=== PATIENT | female | born 1945 | race Caucasian/White ===

== ENCOUNTER → 2017-01-21 | Outpatient (CLI) | payer OTHER, BC ==
[~2017-01-21] MED LIST: GADOBUTROL 10 ML VIAL IVP ONE
== END ==
LOC: FIMAGING 09:08
PROVIDERS: ATTEND Internal Medicine
DX: I63.9 Cerebral infarction, unspecified (principal); R51 Headache
CPT/HCPCS: 70553; A9585

== ENCOUNTER → 2017-01-27 | Outpatient (CLI) | payer OTHER, BC | LOC: BHFA 11:00 | PROVIDERS: ATTEND Internal Medicine Cardiovascular Disease | DX: G45.9 Transient cerebral ischemic attack, unspecified (principal) ==

== ENCOUNTER 2017-02-01 19:52 | Emergency (ER) | payer OTHER, BC ==
[2017-02-01 20:01] VITALS: RESP 16; TEMP 97.7
[2017-02-01] MEDS ORDERED: IOPAMIDOL (ISOVUE 370) 100 ML BTL IV ONE (20:23)
--- NOTE | 2017-02-01 20:28 | EDPHY ---
H & P HPI/ROS: HPI Numbness on lip. 71-year-old female by private vehicle with her . 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 She was sent by her primary care physician, Dr. Good Dangelo. She has a history of a brainstem infarct the diagnosed by MRI 2 weeks ago. Symptoms prior to this diagnosis included intermittent pain in sensation of fullness over her left eye. She has no sequelae from this event. She reports that she has had word-finding difficulty since being on estrogen agonist/antagonist months ago. She reports that she has been off this medication now for a month but still has some chronic issues with word finding difficulty. She comes to the emergency department tonight out of concern for some sudden-onset right lateral lower lip numbness/loss of sensation starting at 7:30 p.m.. She reports that it has improved but is still present to some extent. She denies any other symptoms. She reports having a lisp for many many years when I asked her about this. ROS: Constitutional: No fever, no chills. No weakness. As above Eyes: No discharge. No changes in vision. ENT: No sore throat. No nasal congestion or rhinorrhea. Respiratory: No cough. No shortness of breath. Cardiac: No chest pain, no palpitations. Gastrointestinal: No abdominal pain, no vomiting, no diarrhea. Genitourinary: No hematuria. No dysuria or increased frequency with urination. Musculoskeletal: No back pain. No neck pain. No myalgias or arthralgias. Skin: No rashes. Neurological: No headache. No focal weakness or altered sensation except noted. Past medical history: Cancer breast and thyroid, diskectomy L4-L5, DVT, brainstem infarct which was identified by MRI on January 27 of this year. Social history: Nonsmoker. Here with her . No alcohol. 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 Physical Exam: General Appearance: Alert, no distress. This patient is responding to questions appropriately and in full sentences. This patient appears well- hydrated and well-nourished. Eyes: Pupils equal and round no pallor or injection. No lid edema, erythema or injection. No photophobia. No nystagmus. ENT, Mouth: Mucous membranes are moist. The pharyngeal tissues are unremarkable. No edema or swelling. No asymmetry suggestive of abscess. No erythema or exudates. No tongue lacerations or abrasions. No deviation of her tongue. Respiratory: There are no retractions, lungs are clear to auscultation with good air movement bilaterally. Cardiovascular: Regular rate and rhythm. No murmur. Gastrointestinal: Abdomen is soft and nontender, no masses, bowel sounds normal. No focal tenderness at McBurney's point. No Flores sign. Neurological: Motor sensory function is grossly intact. Cranial nerves are normal. Gait is normal. Skin: Warm and dry, no rashes. Musculoskeletal: Neck is supple and nontender. No pain on flexion of the neck. Extremities are symmetrical. All joints range without pain or impingement. Psychiatric: No agitation. No depression. Database: EKG: EKG time is 9:04 p.m.; EKG shows a narrow complex normal sinus rhythm with a ventricular rate of 83. The NH, QRS, QT intervals are within normal limits. There are no ST-T wave changes indicative of ischemic or injury pattern. No evidence of right heart strain. Interpreted by me. Imaging: CT head without contrast; negative. No acute pathology. CT angiogram of neck; negative. No vascular compromise. CT angiogram of brain; negative. No vascular compromise. Ectatic left vertebral artery but not stenotic. Results of CT imaging discussed with staff radiologist Dr. Jonah Campos. Procedures: Emergency department course: IV placed. She was placed on a monitor. His EKG obtained. I-STAT creatinine 1.2. Within our protocol limitations. She was started on IV normal saline with 500 cc to be given over the next hour. Will be sent for CT of her brain without contrast followed by CT angiograms of the brain and neck. 9:20 p.m., patient re-evaluated. Repeat neurologic Assessment is nonfocal. She still states that she has a mild sensation of of numbness involving the right lateral lower lip. Otherwise she denies any complaints. We are awaiting results of her CT imaging. 9:35 p.m., patient re-evaluated. Denies any significant numbness or altered sensation in her lips. Repeat neurologic Assessment is nonfocal. Results of blood work and EKG as well as CT imaging discussed with her and her . 10:00 p.m., spoke with her primary care physician Dr. Dangelo. We are unable to get a hold of her neurologist. He informs me that the patient had a negative echocardiogram today and a negative Holter monitor evaluation 2 days ago. I do not feel that another MRI at this time would be significantly beneficial. Both Dr. Dangelo and I feel the patient is safe for discharge with follow-up with her neurologist tomorrow. 10:10 p.m., patient re-evaluated. Repeat neurologic Assessment is nonfocal. I discussed disposition with her and her in a shared decision making fashion. She feels comfortable going home and I feel she is safe for discharge at this time. She lives here in town and can easily return to the emergency department if she has any concerns. She will follow up with her neurologist tomorrow for re-evaluation. All of her questions were answered. She was discharged in good condition with her . Differential Diagnosis: The differential diagnosis on this patient includes but is not limited to CVA, TIA. This represents a partial list of diagnoses considered. These considerations are based on history, physical exam, past history, reassessment and diagnostic testing. Smoking Status: Never smoked Constitutional: Initial Vital Signs Temperature (C) 36.5 C 02/01/17 19:58 Heart Rate 83 02/01/17 19:58 Respiratory Rate 16 02/01/17 19:58 Blood Pressure 120/94 H 02/01/17 19:58 O2 Sat (%) 98 02/01/17 19:58 O2 Delivery Mode Room Air Allergies/Adverse Reactions: methyldopa [From Aldomet] Allergy (Verified 05/07/11 17:32) methyldopate HCl [From Aldomet] Allergy (Verified 05/07/11 17:32) Penicillins Allergy (Verified 05/07/11 17:32) Home Medications: Medication Instructions Recorded Acetamn/Diphenhydramine 500/25 1 each PO HS 07/05/12 [Tylenol PM (RX)] ESOMEPRAZOLE MAG TRIHYDRATE 20 mg PO 1900 07/05/12 [NEXIUM] Folic Acid [Folic Acid 1 MG (RX)] 1 mg PO 1900 07/05/12 Methotrexate Sodium [Methotrexate] 15 mg PO MO 07/05/12 Not Completed By Platinum Smith 07/05/12 07/05/12 Medical Decision Making - Diagnostics Imaging Results: Imaging Impressions Head CT 02/01/17 20:09 Impression: 1. Elderly brain, with atrophy and probable white matter small vessel disease. 2. No definite acute cortical ischemia. 3. The recently documented focal area of acute ischemia in the brainstem is not visualized on this CT study. CT angiography of the neck and head are pending. Results called and discussed with Mara Bryant MD on 02/01/2017 at 21: 29 Head CTA 02/01/17 20:09 Impression: 1. CT angiography of the neck is negative for arterial occlusive disease. 2. There is a dominant left vertebral which is dolichoectatic at the distal aspect as well as at the skull base and there is minimal calcified plaque associated with the dilated vessel. CT Angiography of the Head With Attention to the [place] Reason for examination: Dizziness; evaluate for arterial occlusive disease. Follow-up recent brainstem infarct documented on MRI of the brain January 21, 2017. Technique: A spiral acquisition was performed from the base of the brain to the vertex during rapid intravenous administration of 100 mL of Isovue-370. This contrast volume was utilized for evaluation of the neck and head. Axial images are obtained at 0.6 mm thickness and the examination is reviewed on the workstation in multiple window and level settings. Sagittal and coronal reformats are performed and three-dimensional reformations are performed by the radiologist on the workstation. Dose reduction techniques were utilized. Findings: There is excellent arterial opacification. The anterior circulation is normal. The distal internal carotid arteries as well as anterior middle cerebrals are normal. As detailed above there is a dominant left vertebral which is dolichoectatic at the skull base and gives rise to the basilar artery. The [place] appears intact. No areas of diminished perfusion are seen. Specifically no vascular abnormality is seen corresponding to the punctate area of acute ischemia identified in the left side of the brainstem on the MRI.. No regions of stenosis are identified. No hemorrhages are seen and no vascular malformations are identified. No areas of abnormal perfusion are identified and there are no findings to suggest cortical ischemia. Impression: 1. 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 This vessel contains some calcification without occlusion or dissection. 2. Anterior circulation appears normal. Note: All stenoses are calculated using NASCET Criteria. Results called and discussed with Mara Bryant MD on 02/01/2017 at 21: 23 Neck CTA 02/01/17 20:09 Impression: 1. CT angiography of the neck is negative for arterial occlusive disease. 2. There is a dominant left vertebral which is dolichoectatic at the distal aspect as well as at the skull base and there is minimal calcified plaque associated with the dilated vessel. CT Angiography of the Head With Attention to the [place] Reason for examination: Dizziness; evaluate for arterial occlusive disease. Follow-up recent brainstem infarct documented on MRI of the brain January 21, 2017. Technique: A spiral acquisition was performed from the base of the brain to the vertex during rapid intravenous administration of 100 mL of Isovue-370. This contrast volume was utilized for evaluation of the neck and head. Axial images are obtained at 0.6 mm thickness and the examination is reviewed on the workstation in multiple window and level settings. Sagittal and coronal reformats are performed and three-dimensional reformations are performed by the radiologist on the workstation. Dose reduction techniques were utilized. Findings: There is excellent arterial opacification. The anterior circulation is normal. The distal internal carotid arteries as well as anterior middle cerebrals are normal. As detailed above there is a dominant left vertebral which is dolichoectatic at the skull base and gives rise to the basilar artery. The [place] appears intact. No areas of diminished perfusion are seen. Specifically no vascular abnormality is seen corresponding to the punctate area of acute ischemia identified in the left side of the brainstem on the MRI.. No regions of stenosis are identified. No hemorrhages are seen and no vascular malformations are identified. No areas of abnormal perfusion are identified and there are no findings to suggest cortical ischemia. Impression: 1. 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 This vessel contains some calcification without occlusion or dissection. 2. Anterior circulation appears normal. Note: All stenoses are calculated using NASCET Criteria. Results called and discussed with Mara Bryant MD on 02/01/2017 at 21: 23 - Data Points Laboratory Results: Laboratory Results 02/01/17 20:10 02/01/17 20:10 02/01/17 02/01/17 02/01/17 20:11 20:10 20:10 WBC RBC Hgb POC Hgb 13.6 gm/dL gm/dL (12.6-16.3) Hct POC Hct 40 % % (38-47) MCV MCH MCHC RDW Plt Count MPV Neut % (Auto) Lymph % (Auto) [place] % (Auto) Eos % (Auto) Baso % (Auto) Nucleat RBC Rel Count Absolute Neuts (auto) Absolute Lymphs (auto) Absolute Monos (auto) Absolute Eos (auto) Absolute Basos (auto) Absolute Nucleated RBC Immature Gran % Immature Gran # PT 12.3 SEC SEC (12.0-15.0) INR 0.92 (0.83-1.16) APTT 28.0 SEC SEC (23.0-38.0) POC Sodium 141 mEq/L mEq/L (134-144) Sodium 140 mEq/L mEq/L (134-144) POC Potassium 4.6 mEq/L mEq/L (3.3-5.0) Potassium 4.8 mEq/L mEq/L (3.5-5.2) POC Chloride 101 mEq/L mEq/L (97-110) Chloride 101 mEq/L mEq/L (97-110) Carbon Dioxide 26 mEq/l mEq/l (22-31) Anion Gap 13 mEq/L mEq/L (8-16) POC BUN 25 mg/dL H mg/dL (7-23) BUN 25 mg/dL H mg/dL (7-23) Creatinine 1.1 mg/dL H mg/dL (0.6-1.0) POC Creatinine 1.2 mg/dL H mg/dL (0.6-1.0) Estimated GFR 49 Glucose 87 mg/dL mg/dL (70-100) POC Glucose 89 mg/dL mg/dL (70-100) Calcium 9.9 mg/dL mg/dL (8.5-10.4) 02/01/17 20:10 WBC 5.91 10^3/uL 10^3/uL (3.80-9.50) RBC 4.55 10^6/uL 10^6/uL (4.18-5.33) Hgb 13.3 g/dL g/dL (12.6-16.3) POC Hgb Hct 39.7 % % (38.0-47.0) POC Hct MCV 87.3 fL fL (81.5-99.8) MCH 29.2 pg pg (27.9-34.1) MCHC 33.5 g/dL g/dL (32.4-36.7) RDW 12.5 % % (11.5-15.2) Plt Count 221 10^3/uL 10^3/uL (150-400) MPV 11.2 fL fL (8.7-11.7) Neut % (Auto) 58.7 % % (39.3-74.2) Lymph % (Auto) 29.8 % % (15.0-45.0) [place] % (Auto) 9.6 % % (4.5-13.0) Eos % (Auto) 1.2 % % (0.6-7.6) Baso % (Auto) 0.5 % % (0.3-1.7) Nucleat RBC Rel Count 0.0 % % (0.0-0.2) Absolute Neuts (auto) 3.47 10^3/uL 10^3/uL (1.70-6.50) Absolute Lymphs (auto) 1.76 10^3/uL 10^3/uL (1.00-3.00) Absolute Monos (auto) 0.57 10^3/uL 10^3/uL (0.30-0.80) Absolute Eos (auto) 0.07 10^3/uL 10^3/uL (0.03-0.40) Absolute Basos (auto) 0.03 10^3/uL 10^3/uL (0.02-0.10) Absolute Nucleated RBC 0.00 10^3/uL 10^3/uL (0-0.01) Immature Gran % 0.2 % % (0.0-1.1) Immature Gran # 0.01 10^3/uL 10^3/uL (0.00-0.10) PT INR APTT POC Sodium Sodium POC Potassium Potassium POC Chloride Chloride Carbon Dioxide Anion Gap POC BUN BUN Creatinine POC Creatinine Estimated GFR Glucose POC Glucose Calcium Point of Care Test Results: 02/01/17 20:11 POC Sodium 141 POC Potassium 4.6 POC Chloride 101 POC BUN 25 H POC Creatinine 1.2 H POC Glucose 89 Departure - Departure Disposition: Home, Routine, Self-Care Clinical Impression: History of CVA (cerebrovascular accident), Lip numbness Condition: Good Instructions: Paresthesia (ED), Self Care Measures After a Stroke (ED) Additional Instructions: Read and follow provided instructions. Follow-up with your neurologist as discussed tomorrow for re-evaluation. Call his office in the morning for appointment time. Explain your seen in the emergency department tonight. He will have access to all of our testing results and documentation. Return to the emergency department immediately for worsening symptoms or other serious concerns. Referrals: Phuc Dangelo MD [Primary Care Provider] - As per Instructions Jorge Alberto Mejias DO [Doctor of Osteopathy] - As per Instructions
[2017-02-01 20:37] LABS: % IMMATURE GRANULYOCYTES 0.2 % (0.0-1.1); ABSOLUTE IMMATURE GRANULOCYTES 0.01 10^3/uL (0.00-0.10); ADD DIFF? NO; ADD MORPH? NO; ADD SCAN? NO; ATYPICAL LYMPHOCYTE FLAG 20 (0-99); FRAGMENT RBC FLAG 0 (0-99); HEMATOCRIT 39.7 % (38.0-47.0); HEMOGLOBIN 13.3 g/dL (12.6-16.3); LEFT SHIFT FLG 0 (0-99); LIPEMIA HEMOLYSIS FLAG 80 (0-99); MEAN CELL HEMOGLOBIN 29.2 pg (27.9-34.1); MEAN CELL HEMOGLOBIN CONCENTR. 33.5 g/dL (32.4-36.7); MEAN CELL VOLUME 87.3 fL (81.5-99.8); MEAN PLATELET VOLUME 11.2 fL (8.7-11.7); PLATELET CLUMPS FLAG 0 (0-99); PLATELET COUNT 221 10^3/uL (150-400); RED BLOOD CELL COUNT 4.55 10^6/uL (4.18-5.33); RED CELL DISTRIBUTION WIDTH 12.5 % (11.5-15.2)
[2017-02-01 20:41] LABS: ANION GAP 13 mEq/L (8-16); CALCIUM 9.9 mg/dL (8.5-10.4); CARBON DIOXIDE 26 mEq/l (22-31); CHLORIDE 101 mEq/L (97-110); CREATININE 1.1 mg/dL (0.6-1.0); GLOMERULAR FILTRATION RATE 49; GLUCOSE 87 mg/dL (70-100); INR 0.92 (0.83-1.16); POTASSIUM 4.8 mEq/L (3.5-5.2); PROTIME(PATIENT) 12.3 SEC (12.0-15.0); SODIUM 140 mEq/L (134-144)
--- NOTE | 2017-02-01 21:07 | CPEKG ---
Heart Rate: 83 RR Interval: 723 P-R Interval: 168 QRSD Interval: 90 QT Interval: 372 QTC Interval: 437 P [place]: 53 QRS [place]: 29 T Wave [place]: 52 EKG Severity - NORMAL ECG - EKG Impression: SINUS RHYTHM Electronically Signed By: Mara Bryant 01-Feb-2017 22:08:12
[2017-02-01 22:35] VITALS: BP 152/88; PULSE 84; O2SAT 97
== END 2017-02-01 22:36 | disposition home or self-care (01) ==
DX: R20.0 Anesthesia of skin (principal); Z85.3 Personal history of malignant neoplasm of breast; Z86.73 Personal history of transient ischemic attack (TIA), and cerebral infarction without residual deficits
CPT/HCPCS: 70450; 70496; 70498; 93005; 93306; 99285; Q9967; 82947-QW

== ENCOUNTER → 2017-02-01 | Outpatient (CLI) | payer OTHER, BC | LOC: BHFA 10:00 | PROVIDERS: ATTEND Internal Medicine Cardiovascular Disease | DX: I63.9 Cerebral infarction, unspecified (principal) ==

== ENCOUNTER 2017-08-03 06:52 | Emergency (ER) | payer OTHER, BC ==
[2017-08-03 06:57] VITALS: TEMP 97.5
--- NOTE | 2017-08-03 07:11 | EDPHY ---
H & P Stated Complaint: BURNING IN LEFT EYE SAME LAST STROKE. VISION NORMAL, HIT HEAD Time Seen by Provider: 08/03/17 07:02 - Personal History Current Tetanus/Diphtheria Vaccine: Yes Current Tetanus Diphtheria and Acellular Pertussis (TDAP): Yes Tetanus Vaccine Date: 04/2011 - Medical/Surgical History Hx Asthma: No Hx Chronic Respiratory Disease: No Hx Diabetes: No Hx Cardiac Disease: No Hx Renal Disease: No Hx Cirrhosis: No Hx Alcoholism: No Hx HIV/AIDS: No Hx Splenectomy or Spleen Trauma: No Other PMH: CA breast & thyroid, DVT, discectomy L4-5. brain infarct 01/27 - Social History Smoking Status: Never smoked Constitutional: Initial Vital Signs Temperature (C) 36.4 C 08/03/17 06:54 Heart Rate 92 08/03/17 06:54 Respiratory Rate 18 08/03/17 06:54 Blood Pressure 134/91 H 08/03/17 06:54 O2 Sat (%) 97 08/03/17 06:54 O2 Delivery Mode Room Air Allergies/Adverse Reactions: letrozole Allergy (Verified 08/03/17 06:57) methyldopa [From Aldomet] Allergy (Verified 08/03/17 06:57) methyldopate HCl [From Aldomet] Allergy (Verified 08/03/17 06:57) Penicillins Allergy (Verified 08/03/17 06:57) Home Medications: Medication Instructions Recorded Esomeprazole Magnesium [Nexium] 10 mg PO 08/03/17 Ixekizumab [Taltz Autoinjector] 80 mg SQ 08/03/17 Levothyroxine [Synthroid 137 mcg 137 mcg PO DAILY06 08/03/17 (*)] Medical Decision Making - Diagnostics Imaging Results: Imaging Impressions Brain MRI 08/03/17 07:03 Impression: 1. No acute intracranial infarction. 2. A few nonspecific hyperintense T2/FLAIR signal abnormalities in the white matter of bilateral cerebral hemispheres. Differential diagnosis includes microvascular ischemic disease, post-infectious/post-inflammatory sequela, atypical demyelinating disease, or migraine-related sequela. 3. No hemorrhage, hydrocephalus, mass effect, or herniation. 4. Small remote lacunar infarct left cerebellar peduncle with maturation and retraction of left lateral brain stem infarct. If symptoms worsen, additional imaging may be necessary. Findings discussed with Srini Castro MD at 8:24 hour, 08/03/2017. Imaging: Discussed imaging studies w/ call center director Radiologist ED Course/Re-evaluation: CHIEF COMPLAINT: Burning behind left eye. HISTORY OF PRESENT ILLNESS: This patient is a 72 year old female with history of a brainstem infarct diagnosed by MRI 01/2017 complaining of a burning sensation behind her left eye. This is similar to her presentation before her prior infarct. In January, she had an intermittent burning sensation behind her eye for three days before being evaluated by her primary care physician. At this time, she had dizziness and some speech deficits. This morning, the patient woke and stuck her head against the wall, and shortly thereafter developed a burning sensation behind her left eye. This sensation began at 6:00am and lasted approximately 30 seconds. This is now resolved and she is completely asymptomatic at this time. No speech deficits, motor deficits, dizziness, headache, dizziness, or any other associated symptoms. REVIEW OF SYSTEMS: A 10 point review of systems was performed and is negative with the exception of the elements mentioned in the history of present illness. PHYSICAL EXAM: HR, BP, O2 Sat, RR. Temp noted General Appearance: Alert, well hydrated, appropriate, and non-toxic appearing. Head: Atraumatic without scalp tenderness or obvious injury Eyes: Pupils equal, round, reactive to light and accommodation, EOMI, no trauma , no injection. Ears: Clear bilaterally, no perforation, normal landmarks Nose: Atraumatic, no rhinorrhea, clear. Throat: There is no erythema or exudates, no lesions, normal tonsils, mucus membranes moist. Neck: Supple, 2+ carotid upstroke, nontender, no lymphadenopathy. Respiratory: No retractions, no distress, no wheezes, and no accessory muscle use. Lungs are clear to auscultation bilaterally. Cardiovascular: Regular rate and rhythm, no murmurs, rubs, or gallops. Bilateral carotid, radial, dorsalis pedis, and posterior tibial pulses intact. Good capillary refill all extremities. Gastrointestinal: Abdomen is soft, nontender, non-distended, no masses, no rebound, no guarding, no peritoneal signs. Musculoskeletal: Normal active ROM of all extremities, atraumatic. Neurological: Alert, appropriate, and interactive. The patient has normal DTRs and non-focal cranial nerves, motor, sensory, and cerebellar exam. Skin: No rashes, good turgor, no nodules on palpation. Past medical history: History of breast & thyroid cancer, History of DVT, Brain infarct 01/27 Past surgical history:L4-L5 discectomy Family history: Noncontributory. Social history: Lives in [place]. . Employed. DIFFERENTIAL DIAGNOSIS: The differential diagnosis for the patient's neurologic deficits included but was not limited to peripheral causes, central causes including CVA, TIA, electrolyte abnormalities and dehydration, cardiogenic causes, atypical causes like migraine syndrome. MEDICAL DECISION [id number] y/o female with history of brainstem infarct in January presents following an episode of burning behind her left eye, now resolved. She is completely asymptomatic at the time of my evaluation. She is neurologically intact and has no further complaints. NIH stroke scale is zero. 07:[address] Juventino Nolasco at [facility]. He agrees to proceed with noncontrast MRI brain. I will not call a stroke alert at this time. 08:[address] Longo, radiologist. MRI brain is negative for acute processes. Brain stem infarct evidence has resolved. 08:34 Reassessed patient. Discussed results. She is relieved that there is no evidence of CVA at this time. Plan to discharge home in good condition. Follow up and return precautions discussed. She is comfortable with this plan. Departure - Departure Disposition: Home, Routine, Self-Care Clinical Impression: Left eye pain Condition: Good Instructions: Eye Pain (ED) Additional Instructions: 1. Follow up with your primary care physician. 2. Return to the emergency department for recurrence of symptoms, numbness or weakness, difficulty speaking, severe headache, or other worsening of condition or further concerns. Referrals: Phuc Dangelo MD [Primary Care Provider] - As per Instructions Report Scribed for: Srini Castro Report Scribed by: Liana Tapia Date of Report: 08/03/17 Time of Report: 07:21
[2017-08-03 08:52] VITALS: BP 133/90; PULSE 90; RESP 18; O2SAT 94
== END 2017-08-03 08:52 | disposition home or self-care (01) ==
DX: H57.12 Ocular pain, left eye (principal); Z85.3 Personal history of malignant neoplasm of breast